=== PATIENT | female | born 1945 | race African-American/Black ===

== ENCOUNTER 2017-05-11 22:35 | Inpatient (IN) | payer MEDICARE, OTHER ==
[2017-05-11] MEDS: DILTIAZEM 25 MG INJ IV (23:07)
[2017-05-11] MEDS: SOD CHLORIDE 0.9% 1,000 ML IV (23:15)
[2017-05-11] MEDS: HYDROCODONE/APAP (5/325) TAB PO (23:18)
[2017-05-11 23:24] LABS: ADD MAN DIFF? NO
[2017-05-11 23:27] LABS: WHITE BLOOD COUNT 10.6 10^3/ul (4.8-10.8)
[2017-05-11 23:27] LABS: ABNORMAL IP MESSAGE 1; BASOPHILS % 0.4 % (0.0-2.0); EOSINOPHILS # 0.3 10^3/ul (0.0-0.5); EOSINOPHILS % 2.9 % (0.0-7.0); HEMOGLOBIN 14.6 g/dl (12.0-16.0); LYMPHOCYTES # 3.5 10^3/ul (0.8-2.9); MEAN CORPUSCULAR HGB CONC 35.6 g/dl (32.0-37.0); MEAN CORPUSCULAR VOLUME 61.8 fl (82.0-101.0); MONOCYTE # 1.4 10^3/ul (0.3-0.9); MONOCYTES % 12.9 % (0.0-11.0); NEUTROPHIL # 5.3 10^3/ul (1.6-7.5); NEUTROPHILS % 50.4 % (39.0-77.0); PLATELET COUNT 205 10^3/UL (140-415); RED BLOOD COUNT 6.63 10^6/ul (4.20-5.40); RED CELL DISTRIBUTION WIDTH 18.6 % (11.5-14.5)
[2017-05-11 23:44] LABS: ALANINE AMINOTRANSFERASE 33 IU/L (13-69); ALBUMIN 3.8 g/dl (3.3-4.9); ALKALINE PHOSPHATASE 89 IU/L (42-121); ANION GAP 11 (8-16); ASPARTATE AMINO TRANSFERASE 40 IU/L (15-46); BILIRUBIN,INDIRECT 0.5 mg/dl (0-1.1); BILIRUBIN,TOTAL 0.5 mg/dl (0.2-1.3); BLOOD UREA NITROGEN 27 mg/dl (7-20); CALCIUM 9.3 mg/dl (8.4-10.2); CARBON DIOXIDE 36 mmol/L (21-31); CHLORIDE 97 mmol/L (97-110); CREATININE 0.93 mg/dl (0.44-1.00); GLUCOSE 151 mg/dl (70-220); POTASSIUM 4.8 mmol/L (3.5-5.1); SODIUM 139 mmol/L (135-144); TOTAL PROTEIN 8.5 g/dl (6.1-8.1)
[2017-05-11 23:56] LABS: B-TYPE NATRIURETIC PEPTIDE 1890 PG/ML (0-125)
[2017-05-12 00:01] LABS: POSITIVE DIFF @See below
[2017-05-12 00:02] LABS: TROPONIN-I < 0.012 ng/ml (0.00-0.12)
[2017-05-12] MEDS: HYDROCODONE/APAP (10/325) TAB PO (02:24)
[2017-05-12] MEDS: ALBUTEROL/IPRATROPIUM (NEB) 3 ML AMP HHN ×3 (03:51→22:39)
[2017-05-12] MEDS: morphine 4 MG/ML VIAL IV (10:35)
[2017-05-12 10:58] LABS: CREATINE KINASE 424 IU/L (23-200)
[2017-05-12 11:08] LABS: CK INDEX 0.8; CK-MB 3.56 ng/ml (0.0-2.4)
[2017-05-12] MEDS ORDERED: ONDANSETRON 4 MG INJ IV (13:00)
[2017-05-12] MEDS ORDERED: DOCUSATE SODIUM 100 MG CAP PO (13:00)
[2017-05-12] MEDS ORDERED: ACETAMINOPHEN 325 MG TAB PO (13:00)
[2017-05-12] MEDS ORDERED: NACL 0.9% 3 ML SYG IV (13:00)
[2017-05-12] MEDS: DILTIAZEM 25 MG INJ IV (13:43)
[2017-05-12] MEDS: HYDROCODONE/APAP (5/325) TAB PO ×2 (17:00→22:35)
[2017-05-12] MEDS: morphine 2 MG INJ IV (17:54)
[2017-05-12] MEDS ORDERED: BISACODYL 10 MG SUPP PR (18:30)
[2017-05-12] MEDS: RIVAROXABAN 20 MG TABLET PO ×2 (20:00→21:00)
[2017-05-12] MEDS ORDERED: ALBUTEROL/IPRATROPIUM (NEB) 3 ML AMP HHN (21:00)
[2017-05-12] MEDS: METHYLPREDNISOLONE 125 MG INJ IV (21:17)
[2017-05-12] MEDS: oxyCODONE (CR) 20 MG TAB [oxyCONTIN] PO (21:17)
[2017-05-12] MEDS: LUBIPROSTONE 24 MCG CAP PO (21:18)
[2017-05-12] MEDS: FUROSEMIDE 40 MG TAB PO (22:34)
[2017-05-12] MEDS: DIGOXIN 0.25 MG TAB PO (22:34)
[2017-05-13] MEDS: ALBUTEROL/IPRATROPIUM (NEB) 3 ML AMP HHN ×6 (02:01→20:18)
[2017-05-13] MEDS: oxyCODONE (CR) 20 MG TAB [oxyCONTIN] PO ×6 (04:00→21:12)
[2017-05-13] MEDS: morphine 2 MG INJ IV (06:13)
[2017-05-13] MEDS: ENOXAPARIN 40 MG/0.4 ML SYG SC (09:00)
[2017-05-13] MEDS: PANTOPRAZOLE (EC) 40 MG TAB PO (09:00)
[2017-05-13] MEDS: PREGABALIN 75 MG CAP PO (09:01)
[2017-05-13] MEDS: FUROSEMIDE 40 MG TAB PO (09:01)
[2017-05-13] MEDS: ASCORBIC ACID 500 MG TAB PO (09:02)
[2017-05-13] MEDS: LUBIPROSTONE 24 MCG CAP PO ×2 (09:03→21:11)
[2017-05-13] MEDS: clonAZEPAM 0.5 MG TAB PO (09:03)
[2017-05-13] MEDS: DIGOXIN 0.25 MG TAB PO (13:17)
[2017-05-13] MEDS ORDERED: DILTIAZEM 25 MG INJ IV (15:30)
[2017-05-13] MEDS ORDERED: morphine LIQ (10 MG/5 ML) CUP PO (16:30)
[2017-05-13] MEDS: FUROSEMIDE 40 MG INJ IV (16:46)
[2017-05-13] MEDS: RIVAROXABAN 20 MG TABLET PO (17:48)
[2017-05-13] MEDS: ATENOLOL 50 MG TAB PO (21:11)
[2017-05-14] MEDS: ALBUTEROL/IPRATROPIUM (NEB) 3 ML AMP HHN ×6 (01:36→21:25)
[2017-05-14] MEDS: oxyCODONE (CR) 20 MG TAB [oxyCONTIN] PO ×6 (04:00→21:23)
[2017-05-14] MEDS: clonAZEPAM 0.5 MG TAB PO ×2 (09:00→13:09)
[2017-05-14] MEDS: ATENOLOL 50 MG TAB PO (09:00)
[2017-05-14] MEDS: PREGABALIN 75 MG CAP PO ×2 (09:00→13:09)
[2017-05-14] MEDS: ASCORBIC ACID 500 MG TAB PO ×2 (09:00→13:12)
[2017-05-14] MEDS: PANTOPRAZOLE (EC) 40 MG TAB PO ×2 (09:00)
[2017-05-14] MEDS: LUBIPROSTONE 24 MCG CAP PO ×3 (09:00→20:56)
[2017-05-14] MEDS: FUROSEMIDE 40 MG INJ IV (09:00)
[2017-05-14] MEDS: DIGOXIN 0.25 MG TAB PO ×2 (13:00→16:44)
[2017-05-14] MEDS: RIVAROXABAN 20 MG TABLET PO (18:33)
[2017-05-14] MEDS: LORAZEPAM 2 MG INJ IM (20:56)
[2017-05-14] MEDS: ATENOLOL 25 MG TAB PO (21:00)
[2017-05-15] MEDS: oxyCODONE (CR) 20 MG TAB [oxyCONTIN] PO ×5 (00:39→16:44)
[2017-05-15] MEDS: ALBUTEROL/IPRATROPIUM (NEB) 3 ML AMP HHN ×5 (01:00→17:00)
[2017-05-15] MEDS: FUROSEMIDE 40 MG TAB PO (09:00)
[2017-05-15] MEDS: LUBIPROSTONE 24 MCG CAP PO (09:00)
[2017-05-15] MEDS: PANTOPRAZOLE (EC) 40 MG TAB PO (09:00)
[2017-05-15] MEDS: ASCORBIC ACID 500 MG TAB PO (09:00)
[2017-05-15] MEDS: ATENOLOL 25 MG TAB PO (09:00)
[2017-05-15] MEDS: clonAZEPAM 0.5 MG TAB PO (09:00)
[2017-05-15] MEDS: PREGABALIN 75 MG CAP PO (09:00)
[2017-05-15] MEDS: DIGOXIN 0.25 MG TAB PO (12:51)
[2017-05-16] MEDS ORDERED: ATENOLOL 25 MG TAB PO (09:00)
== END 2017-05-15 18:49 | DRG 308 ==
LOC: MS4 05-12 18:08 → E/R 22:35
DX: I48.91 Unspecified atrial fibrillation (principal); G93.40 Encephalopathy, unspecified; I50.23 Acute on chronic systolic (congestive) heart failure; I42.9 Cardiomyopathy, unspecified; I11.0 Hypertensive heart disease with heart failure; I50.9 Heart failure, unspecified; F03.90 Unspecified dementia, unspecified severity, without behavioral disturbance, psychotic disturbance, mood disturbance, and anxiety; J44.9 Chronic obstructive pulmonary disease, unspecified; Z86.73 Personal history of transient ischemic attack (TIA), and cerebral infarction without residual deficits; E11.9 Type 2 diabetes mellitus without complications; K21.9 Gastro-esophageal reflux disease without esophagitis; E66.9 Obesity, unspecified; Z68.22 Body mass index [BMI] 22.0-22.9, adult; I25.10 Atherosclerotic heart disease of native coronary artery without angina pectoris; E78.5 Hyperlipidemia, unspecified; M75.91 Shoulder lesion, unspecified, right shoulder
CPT/HCPCS: 36415; 71045; 73030-RT; 80053; 82550; 82553; 83880; 84484; 85025; 93005; 93306; 94640; 94664; 96374; 96375; 96376; 99291-25

== ENCOUNTER 2017-05-25 12:40 | Inpatient (IN) | payer MEDICARE, OTHER ==
[~2017-05-25 12:40] MED LIST: ADENOSINE 3 MG/ML 2ML VIAL IV; AMIODARONE 150 MG INJ; CA CHLORIDE 10% 10 ML SYRINGE; DEXTROSE 50% 50 ML SYRINGE; MAGNESIUM SULFATE 1 GM/100 ML D5W IVPB
[2017-05-25] MEDS: SODIUM CHLORIDE 0.9% 500 ML BAG IV* (12:40)
[2017-05-25] MEDS: AMIODARONE 900MG/D5W DRIP 500 ML IV (12:50)
[2017-05-25] MEDS ORDERED: VECURONIUM 100 MG in DEXTROSE 5% 100 ML IV (12:59)
[2017-05-25] MEDS ORDERED: FENTAnyl 50 MCG/ML VIAL IV (13:00)
[2017-05-25] MEDS: SODIUM CHLORIDE 0.9% 1L BAG IV* (13:16)
[2017-05-25] MEDS: NORepinephrine 8MG/250 ML (PMX 250 ML IV (13:19)
[2017-05-25 13:20] LABS: ADD MAN DIFF? NO
[2017-05-25 13:27] LABS: ABNORMAL IP MESSAGE 1; BASOPHIL # 0.1 10^3/ul (0.0-0.1); BASOPHILS % 0.3 % (0.0-2.0); EOSINOPHILS % 0.1 % (0.0-7.0); HEMATOCRIT 34.6 % (37.0-47.0); HEMOGLOBIN 12.4 g/dl (12.0-16.0); LYMPHOCYTES # 2.3 10^3/ul (0.8-2.9); LYMPHOCYTES % 14.3 % (15.0-51.0); MEAN CORPUSCULAR HEMOGLOBIN 22.6 pg (29.0-33.0); MEAN CORPUSCULAR HGB CONC 35.8 g/dl (32.0-37.0); MEAN CORPUSCULAR VOLUME 63.1 fl (82.0-101.0); MONOCYTE # 1.2 10^3/ul (0.3-0.9); MONOCYTES % 7.6 % (0.0-11.0); NEUTROPHIL # 11.7 10^3/ul (1.6-7.5); NEUTROPHILS % 73.3 % (39.0-77.0); NUCLEATED RED BLOOD CELLS # 0.4 10^3/ul (0.0-0.0); NUCLEATED RED BLOOD CELLS% 2.4 /100WBC (0.0-0.0); PLATELET COUNT 216 10^3/UL (140-415); RED BLOOD COUNT 5.48 10^6/ul (4.20-5.40); RED CELL DISTRIBUTION WIDTH 17.5 % (11.5-14.5)
[2017-05-25 13:28] LABS: POSITIVE DIFF @See below
[2017-05-25] MEDS: CEFEPIME 2GM/50 ML (PMX) 50 ML IVPB (13:40)
[2017-05-25 13:46] LABS: INR 3.29; PROTIME 34.5 Sec (11.9-14.9); PT RATIO 2.7
[2017-05-25 13:47] LABS: PARTIAL THROMBOPLASTIN TIME 52.4 Sec (25.0-35.0)
[2017-05-25 13:51] LABS: ADD UMIC YES; UR ASCORBIC ACID 40 mg/dL (NEGATIVE); UR BACTERIA FEW /HPF (NONE SEEN); UR BILIRUBIN (Dip) NEGATIVE (NEGATIVE); UR BLOOD (Dip) NEGATIVE (NEGATIVE); UR CLARITY CLOUDY (CLEAR); UR COLOR AMBER (YELLOW); UR GLUCOSE (Dip) NEGATIVE (NEGATIVE); UR HYALINE CAST FEW /HPF (NONE SEEN); UR KETONES (Dip) NEGATIVE (NEGATIVE); UR LEUKOCYTE ESTERASE (Dip) NEGATIVE Leu/ul (NEGATIVE); UR NITRITE (Dip) NEGATIVE (NEGATIVE); UR RBC 0 /HPF (0-5); UR SPECIFIC GRAVITY (Dip) 1.016 (1.003-1.030); UR TOTAL PROTEIN (Dip) 1+ mg/dl (NEGATIVE); UR UROBILINOGEN (Dip) 2+ mg/dL (NEGATIVE); UR WBC 0 /HPF (0-5)
[2017-05-25 14:03] LABS: ALBUMIN 3.1 g/dl (3.3-4.9); ALBUMIN/GLOBULIN RATIO 0.96; ALKALINE PHOSPHATASE 104 IU/L (42-121); ANION GAP 34 (8-16); BILIRUBIN,INDIRECT 0.9 mg/dl (0-1.1); BILIRUBIN,TOTAL 2.1 mg/dl (0.2-1.3); BLOOD UREA NITROGEN 46 mg/dl (7-20); CALCIUM 10.6 mg/dl (8.4-10.2); CARBON DIOXIDE 14 mmol/L (21-31); CHLORIDE 100 mmol/L (97-110); CREATININE 3.19 mg/dl (0.44-1.00); GLUCOSE 199 mg/dl (70-220); LIPASE 113 U/L (23-300); MAGNESIUM 3.2 mg/dl (1.7-2.5); SODIUM 139 mmol/L (135-144); TOTAL PROTEIN 6.3 g/dl (6.1-8.1)
[2017-05-25 14:07] LABS: POTASSIUM 8.5 mmol/L (3.5-5.1)
[2017-05-25 14:13] LABS: LACTIC ACID 16.6 mmol/L (0.5-2.0)
[2017-05-25 14:14] LABS: ALANINE AMINOTRANSFERASE 1586 IU/L (13-69)
[2017-05-25 14:15] LABS: AADO2 Arterial 239.3 mmHg (7.0-24.0); Allen Test ACCEPTAB; Arterial Base Excess -18.5 mmol/L (-3.0-3); Arterial Blood Gas Oxygen Sat 99.2 mmHG (95.0-100.0); Arterial COHb 0.8 % (0.0-3.0); Arterial Fraction of Oxyhgb 97.7 % (93.0-99.0); Arterial HCO3 13.4 mmol/L (22.0-26.0); Arterial MetHb 0.7 % (0.0-1.5); Arterial Total Hemglobin 13.8 g/dl (12.0-18.0); Arterial pCO2 58.5 mmhg (35-45); MODE VENT - AC; Site Right Radial
[2017-05-25] MEDS: HYDROCORTISONE 100 MG INJ IV (14:15)
[2017-05-25] MEDS: DOPamine-D5W 1.6 MG/ML 250 ML IV (14:15)
[2017-05-25 14:21] LABS: TROPONIN-I 0.136 ng/ml (0.00-0.12)
[2017-05-25] MEDS ORDERED: DEXTROSE 50% 50 ML SYRINGE IV ×3 (14:30→18:00)
[2017-05-25] MEDS: CA CHLORIDE 10% 10 ML SYRINGE IV (14:36)
[2017-05-25 14:38] LABS: ASPARTATE AMINO TRANSFERASE 3212 IU/L (15-46)
[2017-05-25] MEDS: NA BICARBONATE 8.4% 50 ML SYG IV (14:38)
[2017-05-25] MEDS: INSULIN REGULAR, HUMAN 100 UNIT/1 ML 3ML VIAL IVP (14:52)
[2017-05-25] MEDS ORDERED: PROPOFOL 100 ML IV (16:00)
[2017-05-25] MEDS ORDERED: ACETAMINOPHEN 650 MG SUPP PR ×2 (16:00→18:00)
[2017-05-25] MEDS ORDERED: MEPERIDINE 25 MG INJ IV ×4 (16:00→18:00)
[2017-05-25] MEDS: MIDAZOLAM (DRIP) 50 mg/50 mL 50 ML IV (17:14)
[2017-05-25] MEDS: FENTAnyl (DRIP) 1000 mcg/100mL 100 ML IV (17:17)
[2017-05-25] MEDS: VANCOMYCIN 1 GM (PMX) 250 ML IVPB (17:19)
[2017-05-25] MEDS ORDERED: ACETAMINOPHEN 650MG/20.3ML CUP PO ×2 (17:30→18:00)
[2017-05-25] MEDS ORDERED: ONDANSETRON 4 MG INJ IV (17:30)
[2017-05-25] MEDS ORDERED: SOD CHLORIDE 0.9% 1,000 ML IV (18:00)
[2017-05-25] MEDS ORDERED: ARTIFICIAL TEARS 15 ML OPH BOTH EYES (18:00)
[2017-05-25] MEDS ORDERED: MANNITOL 25% 50 ML IV (18:00)
[2017-05-25] MEDS ORDERED: ALBUMIN HUMAN 25% 50 ML IV (18:00)
[2017-05-25] MEDS ORDERED: SODIUM CHLORIDE 0.9% 1L BAG IV (18:00)
[2017-05-25 18:17] LABS: HAAIG REFLEX REFLEX FILED
[2017-05-25] MEDS: VECURONIUM 100 MG in DEXTROSE 5% 100 ML IV (18:26)
[2017-05-25 18:30] LABS: DIGOXIN 0.4 ng/ml (1.0-2.0)
[2017-05-25 18:56] LABS: HEPATITIS B SURFACE ANTIGEN NEGATIVE (NEGATIVE)
[2017-05-25 19:14] LABS: HEPATITIS B CORE ANTIBODY REACTIVE (NEGATIVE); HEPATITIS C VIRAL ANTIBODY REACTIVE (NEGATIVE)
[2017-05-25] MEDS: DEXTROSE 5%-0.45% NACL 1,000 ML IV (20:00)
[2017-05-25] MEDS: ACCU-CHEK XX ×6 (20:00→23:53)
[2017-05-25 20:36] LABS: LACTIC ACID 13.6 mmol/L (0.5-2.0)
[2017-05-25 20:43] LABS: TROPONIN-I 0.292 ng/ml (0.00-0.12)
[2017-05-25 20:53] LABS: CK INDEX 1.8; CREATINE KINASE 590 IU/L (23-200)
[2017-05-25 20:55] LABS: ALBUMIN 3.6 g/dl (3.3-4.9); ALBUMIN/GLOBULIN RATIO 0.97; ALKALINE PHOSPHATASE 138 IU/L (42-121); ANION GAP 32 (8-16); BILIRUBIN,INDIRECT 1.7 mg/dl (0-1.1); BILIRUBIN,TOTAL 4.4 mg/dl (0.2-1.3); BLOOD UREA NITROGEN 51 mg/dl (7-20); CARBON DIOXIDE 11 mmol/L (21-31); CHLORIDE 105 mmol/L (97-110); GLUCOSE 160 mg/dl (70-220); SODIUM 141 mmol/L (135-144); TOTAL PROTEIN 7.3 g/dl (6.1-8.1)
[2017-05-25 20:59] LABS: POTASSIUM 7.2 mmol/L (3.5-5.1)
[2017-05-25] MEDS: ALBUTEROL HFA 8 GM INHALER INH (21:00)
[2017-05-25] MEDS: IPRATROPIUM (HFA) 12.9 GM INHALER INH (21:00)
[2017-05-25] MEDS ORDERED: ALBUTEROL/IPRATROPIUM (NEB) 3 ML AMP NEB (21:00)
[2017-05-25 21:21] LABS: ALANINE AMINOTRANSFERASE 4347 IU/L (13-69)
[2017-05-25 22:03] LABS: ASPARTATE AMINO TRANSFERASE > 7500 IU/L (15-46)
[2017-05-25] MEDS: INSULIN HUMAN REGULAR 100 UNIT in SOD CHLORIDE 0.9% 99 ML IV (22:56)
[2017-05-26] MEDS: ACCU-CHEK XX ×14 (00:34→14:03)
[2017-05-26] MEDS: HEPARIN 1000 UNITS/ML 10 ML INJ CATHETER (00:50)
[2017-05-26] MEDS: IPRATROPIUM (HFA) 12.9 GM INHALER INH ×3 (01:00→08:15)
[2017-05-26] MEDS: ALBUTEROL HFA 8 GM INHALER INH ×3 (01:00→08:15)
[2017-05-26 01:40] LABS: TROPONIN-I 0.483 ng/ml (0.00-0.12)
[2017-05-26 01:42] LABS: LACTIC ACID 11.3 mmol/L (0.5-2.0)
[2017-05-26] MEDS: DOPamine-D5W 1.6 MG/ML 250 ML IV ×3 (04:22→13:00)
[2017-05-26] MEDS: PANTOPRAZOLE 40 MG INJ IV (06:00)
[2017-05-26] MEDS: OCULAR LUBRICANT 3.5 GM OPH OINT BOTH EYES ×5 (06:00→11:12)
[2017-05-26] MEDS: ARTIFICIAL TEARS 15 ML OPH BOTH EYES ×3 (06:00→11:11)
[2017-05-26 06:22] LABS: AADO2 Arterial 363.7 mmHg (7.0-24.0); Allen Test ACCEPTAB; Arterial Base Excess -9.1 mmol/L (-3.0-3); Arterial Blood Gas Oxygen Sat 70.1 mmHG (95.0-100.0); Arterial COHb 0.7 % (0.0-3.0); Arterial Fraction of Oxyhgb 69.3 % (93.0-99.0); Arterial HCO3 18.1 mmol/L (22.0-26.0); Arterial MetHb 0.4 % (0.0-1.5); Arterial Total Hemglobin 16.1 g/dl (12.0-18.0); Arterial pCO2 35.5 mmhg (35-45); MODE VENT - AC; Site Right Radial; Temperature 32.3 C
[2017-05-26 06:49] LABS: TROPONIN-I 0.924 ng/ml (0.00-0.12)
[2017-05-26 07:33] LABS: ADD MAN DIFF? NO
[2017-05-26 07:37] LABS: WHITE BLOOD COUNT 29.7 10^3/ul (4.8-10.8)
[2017-05-26 07:37] LABS: ABNORMAL IP MESSAGE 1; MEAN CORPUSCULAR HEMOGLOBIN 22.5 pg (29.0-33.0); MEAN CORPUSCULAR HGB CONC 36.8 g/dl (32.0-37.0); NUCLEATED RED BLOOD CELLS% 2.2 /100WBC (0.0-0.0); PLATELET COUNT 159 10^3/UL (140-415); RED BLOOD COUNT 6.23 10^6/ul (4.20-5.40)
[2017-05-26 07:38] LABS: POSITIVE DIFF @See below
[2017-05-26 07:52] LABS: ALBUMIN/GLOBULIN RATIO 0.83; ALKALINE PHOSPHATASE 115 IU/L (42-121); ANION GAP 23 (8-16); BILIRUBIN,INDIRECT 2.3 mg/dl (0-1.1); BILIRUBIN,TOTAL 4.9 mg/dl (0.2-1.3); BLOOD UREA NITROGEN 42 mg/dl (7-20); CALCIUM 7.9 mg/dl (8.4-10.2); CARBON DIOXIDE 16 mmol/L (21-31); CHLORIDE 102 mmol/L (97-110); CREATININE 2.57 mg/dl (0.44-1.00); GLUCOSE 280 mg/dl (70-220); MAGNESIUM 1.8 mg/dl (1.7-2.5); PHOSPHORUS 6.3 mg/dl (2.5-4.9); POTASSIUM 5.1 mmol/L (3.5-5.1); SODIUM 136 mmol/L (135-144); TOTAL PROTEIN 6.6 g/dl (6.1-8.1)
[2017-05-26] MEDS: SOD CHLORIDE 0.9% 1,000 ML IV ×4 (07:56→14:03)
[2017-05-26] MEDS: DEXTROSE 5%-0.45% NACL 1,000 ML IV (07:59)
[2017-05-26] MEDS: VECURONIUM 100 MG in DEXTROSE 5% 100 ML IV (08:00)
[2017-05-26] MEDS: VASOPRESSIN 60 UNIT in SOD CHLORIDE 0.9% 57 ML IV (08:00)
[2017-05-26 08:03] LABS: AADO2 Arterial 129.5 mmHg (7.0-24.0); Allen Test ACCEPTAB; Arterial Blood Gas Oxygen Sat 99.2 mmHG (95.0-100.0); Arterial COHb 0.2 % (0.0-3.0); Arterial Fraction of Oxyhgb 98.3 % (93.0-99.0); Arterial HCO3 12.3 mmol/L (22.0-26.0); Arterial MetHb 0.7 % (0.0-1.5); Arterial pCO2 26.5 mmhg (35-45); MODE VENT - AC; Site Right Radial; Temperature 33.6 C
[2017-05-26] MEDS: NORepinephrine 8MG/250 ML (PMX 250 ML IV (08:06)
[2017-05-26 08:36] LABS: LIPASE 485 U/L (23-300)
[2017-05-26 08:36] LABS: AMYLASE 447 U/L (11-123)
[2017-05-26] MEDS: NA BICARBONATE 8.4% 50 ML SYG IV (09:21)
[2017-05-26] MEDS ORDERED: PHENYLephrine 20MG IN 250 ML 250 ML (09:47)
[2017-05-26 10:02] LABS: ANISOCYTOSIS 2+ (0-0); BAND NEUTROPHILS % (M) 34 % (0-4); ERYTHROBLAST% (NRBC) (M) 3 % (0-0); HYPOCHROMASIA 1+ (0-0); LYMPHOCYTES #M 2.3 10^3/ul (0.8-2.9); LYMPHOCYTES % (M) 8 % (15-51); METAMYELOCYTES #M 0.2 10^3/ul (0.0-0.0); METAMYELOCYTES %M 1 % (0-0); MICROCYTOSIS 1+ (0-0); MONOCYTE #M 1.4 10^3/ul (0.3-0.9); MONOCYTES % (M) 5 % (0-11); MYELOCYTES #M 0.2 10^3/ul (0.0-0.0); MYELOCYTES % (M) 1 % (0-0); PLATELET ESTIMATE NORMAL; POIKILOCYTOSIS 2+ (0-0); POLYCHROMASIA 1+ (0-0); SEG NEUT #M 18.1 10^3/ul (1.6-7.5); SEGMENTED NEUTROPHILS (M) % 51 % (39-77); SMUDGE%M 8 % (0-0); TARGET CELLS 1+ (0-0)
[2017-05-26] MEDS: PHENYLephrine 40 MG in DEXTROSE 5% 496 ML IV ×2 (10:13→12:26)
[2017-05-26] MEDS ORDERED: DOBUTamine/D5W 1 MG/ML DRIP 250 ML (10:42)
[2017-05-26] MEDS: DOBUTamine/D5W 1 MG/ML DRIP 250 ML IV ×2 (10:48→13:54)
[2017-05-26] MEDS ORDERED: VANCOMYCIN IV PER PHARMACY XX (11:00)
[2017-05-26] MEDS: METHYLPREDNISOLONE 125 MG INJ IV (11:02)
[2017-05-26 11:13] LABS: WHITE BLOOD COUNT 25.4 10^3/ul (4.8-10.8)
[2017-05-26 11:13] LABS: ABNORMAL IP MESSAGE 1; HEMATOCRIT 37.2 % (37.0-47.0); HEMOGLOBIN 13.5 g/dl (12.0-16.0); MEAN CORPUSCULAR HGB CONC 36.3 g/dl (32.0-37.0); MEAN CORPUSCULAR VOLUME 60.6 fl (82.0-101.0); NUCLEATED RED BLOOD CELLS% 2.8 /100WBC (0.0-0.0); PLATELET COUNT 139 10^3/UL (140-415); RED BLOOD COUNT 6.14 10^6/ul (4.20-5.40); RED CELL DISTRIBUTION WIDTH 18.1 % (11.5-14.5)
[2017-05-26 11:14] LABS: ADD MAN DIFF? YES; POSITIVE DIFF @See below
[2017-05-26] MEDS: ALBUMIN HUMAN 25% 100 ML IV (11:14)
[2017-05-26] MEDS: INSULIN HUMAN REGULAR 100 UNIT in SOD CHLORIDE 0.9% 99 ML IV (11:28)
[2017-05-26 11:40] LABS: AMYLASE 396 U/L (11-123); ANION GAP 20 (8-16); BLOOD UREA NITROGEN 41 mg/dl (7-20); CALCIUM 6.7 mg/dl (8.4-10.2); CARBON DIOXIDE 18 mmol/L (21-31); CHLORIDE 104 mmol/L (97-110); CREATININE 2.46 mg/dl (0.44-1.00); GLUCOSE 316 mg/dl (70-220); LIPASE 408 U/L (23-300); PHOSPHORUS 5.8 mg/dl (2.5-4.9); POTASSIUM 4.9 mmol/L (3.5-5.1); SODIUM 137 mmol/L (135-144)
[2017-05-26 11:43] LABS: INR 5.33; PROTIME 50.7 Sec (11.9-14.9)
[2017-05-26 11:44] LABS: PARTIAL THROMBOPLASTIN TIME 42.2 Sec (25.0-35.0)
[2017-05-26 11:50] LABS: MAGNESIUM 1.7 mg/dl (1.7-2.5)
[2017-05-26] MEDS: VASOPRESSIN 60 UNIT in DEXTROSE 5% 57 ML IV (12:20)
[2017-05-26 12:34] LABS: BASOPHIL # 0.1 10^3/ul (0.0-0.1); BASOPHILS % 0.2 % (0.0-2.0); LYMPHOCYTES # 2.2 10^3/ul (0.8-2.9); LYMPHOCYTES % 8.5 % (15.0-51.0); MONOCYTE # 1.5 10^3/ul (0.3-0.9); MONOCYTES % 5.8 % (0.0-11.0); NEUTROPHIL # 21.4 10^3/ul (1.6-7.5); NEUTROPHILS % 84.2 % (39.0-77.0); NUCLEATED RED BLOOD CELLS # 0.7 10^3/ul (0.0-0.0)
[2017-05-26] MEDS: MIDAZOLAM (DRIP) 50 mg/50 mL 50 ML IV (13:00)
[2017-05-26] MEDS: CEFEPIME 1GM/50 ML (PMX) 50 ML IVPB (13:08)
[2017-05-26 14:07] LABS: ALANINE AMINOTRANSFERASE 5825 IU/L (13-69)
[2017-05-26 14:35] LABS: AADO2 Arterial 625.8 mmHg (7.0-24.0); Allen Test ACCEPTAB; Arterial Base Excess -16.4 mmol/L (-3.0-3); Arterial Blood Gas Oxygen Sat 75.3 mmHG (95.0-100.0); Arterial COHb 0.1 % (0.0-3.0); Arterial Fraction of Oxyhgb 74.7 % (93.0-99.0); Arterial MetHb 0.7 % (0.0-1.5); Arterial Total Hemglobin 12.7 g/dl (12.0-18.0); Arterial pCO2 50.7 mmhg (35-45); MODE VENT - PC; Site Right Radial; Temperature 32.9 C
[2017-05-26 15:07] LABS: ASPARTATE AMINO TRANSFERASE > 7500 IU/L (15-46)
[2017-05-26] MEDS ORDERED: ACETAMINOPHEN 650MG/20.3ML CUP PO ×2 (16:00→18:00)
[2017-05-26] MEDS ORDERED: ACETAMINOPHEN 650 MG SUPP PR (18:00)
== END 2017-05-26 15:46 | disposition expired ==
LOC: E/R 12:40 → ICU 15:29
PROVIDERS: Internal Medicine
PROC: 0BH17EZ Insertion of Endotracheal Airway into Trachea, Via Natural or Artificial Opening (ICD-10-PCS; principal; 2017-05-25)
PROC: 5A1945Z Respiratory Ventilation, 24-96 Consecutive Hours (ICD-10-PCS; 2017-05-25)
PROC: 4A133R1 Monitoring of Arterial Saturation, Peripheral, Percutaneous Approach (ICD-10-PCS; 2017-05-25)
PROC: 06HM33Z Insertion of Infusion Device into Right Femoral Vein, Percutaneous Approach (ICD-10-PCS; 2017-05-25)
DX: I21.9 Acute myocardial infarction, unspecified (principal); J96.00 Acute respiratory failure, unspecified whether with hypoxia or hypercapnia; R57.0 Cardiogenic shock; G93.1 Anoxic brain damage, not elsewhere classified; N17.9 Acute kidney failure, unspecified; E87.2 Acidosis; E83.39 Other disorders of phosphorus metabolism; J44.9 Chronic obstructive pulmonary disease, unspecified; E87.5 Hyperkalemia; G47.33 Obstructive sleep apnea (adult) (pediatric); I11.0 Hypertensive heart disease with heart failure; I50.9 Heart failure, unspecified; E78.5 Hyperlipidemia, unspecified; D72.829 Elevated white blood cell count, unspecified; F03.90 Unspecified dementia, unspecified severity, without behavioral disturbance, psychotic disturbance, mood disturbance, and anxiety; F32.9 Major depressive disorder, single episode, unspecified; I25.5 Ischemic cardiomyopathy; I48.0 Paroxysmal atrial fibrillation; F19.10 Other psychoactive substance abuse, uncomplicated; R00.1 Bradycardia, unspecified; I25.10 Atherosclerotic heart disease of native coronary artery without angina pectoris
CPT/HCPCS: 36415; 36600; 70450; 71045; 74018; 74176; 80048; 80053; 80162; 81001; 82150; 82550; 82553; 82803; 82962; 83605; 83690; 83735; 84100; 84484; 85025; 85384; 85610; 85730; 86704; 86709; 86803; 87040; 87081; 87086; 87340; 90935; 93005; 93308; 94002; 94003; 94640; 94770; 96374; 96375; 99291-25